=== PATIENT | male | born 1975 | race African-American/Black ===

== ENCOUNTER 2017-04-05 21:48 | Emergency (ER) | payer BC, OTHER ==
[~2017-04-05] VITALS: Ht 175.3 cm; Wt 99.8 kg
[~2017-04-05 21:48] MED LIST: ACET-704 PO; DIAZ5TAB PO; GABA-585 PO; HYDR-971 PO
--- NOTE | 2017-04-05 22:22 | PHYS DOC ---
Past Medical History Past Medical History: Hypertension Past Surgical History: Other Additional Past Surgical Histo: L MENISCUS/ACL Alcohol Use: None Drug Use: None Adult General Chief Complaint Chief Complaint: MECHANICAL FALL HPI HPI Patient is a 41 year old male resents to the emergency department stating that he has had left knee ACL repair approximately a year ago. Patient states that yesterday while he was at work his knee gave out and he went to try to catch himself and also injured his right elbow. Patient presents to the emergency department with a knee brace in place. Patient states he has not taken anything for pain and discomfort. Patient also states that he has a history of high blood pressure and does take blood pressure medication however he has not been taking his evening dose for quite some time. Patient does state that he has can be able to go home tonight and take his blood pressure medication. Patient states he knows what his medications are however he is not quite sure of the dosages. Patient denies SOA, chest pain, dizziness, lightheaded blurred vision, tinnitus. Denies swelling to lower extremities. Review of Systems Review of Systems Constitutional: Denies fever or chills [] Eyes: Denies change in visual acuity, redness, or eye pain [] HENT: Denies nasal congestion or sore throat [] Respiratory: Denies cough or shortness of breath [] Cardiovascular: No additional information not addressed in HPI [] GI: Denies abdominal pain, nausea, vomiting, bloody stools or diarrhea [] : Denies dysuria or hematuria [] Musculoskeletal: Denies back pain. Complaint of left knee pain, right elbow pain. Integument: Denies rash or skin lesions [] Neurologic: Denies headache, focal weakness or sensory changes [] Endocrine: Denies polyuria or polydipsia [] Allergies Allergies Allergies Coded Allergies Type Severity Reaction Last Updated Verified Iodine and Iodide Containing Produc Allergy Intermediate 06/11/16 Yes Physical Exam Physical Exam Constitutional: Well developed, well nourished, no acute distress, non-toxic appearance. [] HENT: Normocephalic, atraumatic, bilateral external ears normal, oropharynx moist, no oral exudates, nose normal. [] Eyes: PERRLA, EOMI, conjunctiva normal, no discharge. [] Neck: Normal range of motion, no tenderness, supple, no stridor. [] Cardiovascular:Heart rate regular rhythm, no murmur [] Lungs & Thorax: Bilateral breath sounds clear to auscultation [] Skin: Warm, dry, no erythema, no rash. [] Extremities: Right elbow tenderness noted on the lateral part., no cyanosis, no clubbing, ROM intact, no edema. Patient with tenderness of his left knee on the lateral and medial part. He was postictal gutter splint myoglobin in the checkout avoid does not Neurologic: Alert and oriented X 3, normal motor function, normal sensory function, no focal deficits noted. [] Psychologic: Affect normal, judgement normal, mood normal. [] Current Patient Data Vital Signs Vital Signs Date Time Temp Pulse Resp B/P (MAP) Pulse Ox O2 Delivery O2 Flow Rate FiO2 04/05/17 21:58 98.3 91 18 95 Room Air 98.3 EKG EKG [] Radiology/Procedures Radiology/Procedures [] Course & Med Decision Making Course & Med Decision Making Pertinent Labs and Imaging studies reviewed. (See chart for details) X-rays were negative for any bony abnormalities per Dr. Nolasco. Patient has a knee immobilizer in place as well as an Diego wrap to the elbow. Patient will be recommended to use ibuprofen for pain and discomfort ice packs elevation as much as possible. He'll be recommended follow-up with his primary orthopedic doctor in which she seen in the past. Patient's blood pressure was elevated here in the emergency department. He does state he takes blood pressure medicine at night however has not taken it for several months he was recommended to go home and take his blood pressure medication tonight and monitor his blood pressure. Patient agrees with discharge instructions, treatment regimens and follow-up recommendations. Signs and symptoms to return back to emergency department been provided. All questions and concerns have been answered at patient's bedside. Dragon Disclaimer Dragon Disclaimer This electronic medical record was generated, in whole or in part, using a voice recognition dictation system. Departure Departure Impression: Primary Impression: Left knee pain Additional Impression: Right elbow pain Disposition: HOME, SELF-CARE Condition: STABLE Referrals: KASSANDRA CENTENO (PCP) Patient Instructions: Elbow Injury-Brief, Knee Pain, [id number] Additional Instructions: Activity as tolerated. Ice packs on 20 minutes off 20 minutes several times a day. Wear the knee immobilizer which you have placed. Wear the splinting device that you have for your although. Ibuprofen 800 mg every 8 hours with food stop taking few develop an upset stomach. The sure you take your blood pressure medication as prescribed. Monitor your blood pressure. Follow-up to primary care physician in the next 3-5 days. Return back to emergency prior signs symptoms of become worse. Problem Qualifiers Primary Impression: Left knee pain Chronicity: unspecified Qualified Codes: M25.562 - Pain in left knee GAY GLOVER APRN Apr 05, 2017 22:22
[2017-04-05 23:19] VITALS: BP 167/122
--- NOTE | 2017-04-06 07:55 | RAD ---
EXAM: Left knee, 4 views HISTORY: Left knee pain. Instability, fall. COMPARISON: None. FINDINGS: No fractures are identified. Joint spaces are maintained. Alignment is normal. There is no joint effusion. Atherosclerotic calcifications are noted. IMPRESSION: 1. No fracture or joint effusion.
--- NOTE | 2017-04-06 07:57 | RAD ---
EXAM: Right elbow 3 views. HISTORY: Fall. COMPARISON: None. FINDINGS: The study is significantly limited by nonstandard projections. No lateral view is available. There is no displaced fracture. Joint spaces and alignment are grossly maintained. IMPRESSION: 1. Significantly limited examination reveals no displaced fracture.
== END 2017-04-05 23:20 | disposition home or self-care (01) ==
LOC: ER 21:48
DX: M25.521 Pain in right elbow (principal); M25.562 Pain in left knee; I10 Essential (primary) hypertension; Z98.890 Other specified postprocedural states; Z91.041 Radiographic dye allergy status
CPT/HCPCS: 73080; 73564; 99284

== ENCOUNTER 2017-05-11 19:56 | Emergency (ER) | payer SELFPAY ==
[~2017-05-11] VITALS: Ht 175.3 cm; Wt 99.8 kg
[2017-05-11 20:12] VITALS: BP 161/110
[2017-05-11] MEDS ORDERED: HYDR-971 PO (21:02)
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
== END 2017-05-11 21:08 | disposition home or self-care (01) ==
LOC: ER 19:56
DX: M25.562 Pain in left knee (principal); M25.552 Pain in left hip; I10 Essential (primary) hypertension; Z91.041 Radiographic dye allergy status; V49.9XXA Car occupant (driver) (passenger) injured in unspecified traffic accident, initial encounter; Y93.89 Activity, other specified; Y99.8 Other external cause status; Y92.488 Other paved roadways as the place of occurrence of the external cause
CPT/HCPCS: 99283

== ENCOUNTER 2017-07-13 00:58 | Emergency (ER) | payer BC | END 2017-07-13 01:49 | disposition home or self-care (01) | LOC: ER 00:58 | DX: R50.9 Fever, unspecified (principal); R11.2 Nausea with vomiting, unspecified; M79.1 Myalgia; R05 Cough; J02.9 Acute pharyngitis, unspecified; J34.89 Other specified disorders of nose and nasal sinuses; I10 Essential (primary) hypertension; Z91.041 Radiographic dye allergy status | CPT/HCPCS: 99283 ==